=== PATIENT | male | born 1955 | race Native Hawaiian/Other Pacific Islander ===

== ENCOUNTER 2016-10-13 16:27 | Emergency (ER) | payer OTHER ==
[~2016-10-13] VITALS: Ht 167.6 cm; Wt 81.6 kg
[2016-10-13 17:13] LABS: PLATELET COUNT 172 K/uL (142-355)
[2016-10-13 17:22] LABS: POTASSIUM 4.6 mmol/L (3.6-5.2); SODIUM 136 mmol/L (136-145)
[2016-10-13 19:56] VITALS: BP 148/68; TEMP 97.9
== END 2016-10-13 20:01 | disposition home or self-care (01) ==
LOC: ED 16:27
DX: E11.9 Type 2 diabetes mellitus without complications (principal); R53.1 Weakness
CPT/HCPCS: 36415; 80053; 81000; 83036; 85027; 96365; 99284

== ENCOUNTER 2016-10-15 19:02 | Emergency (ER) | payer OTHER ==
[~2016-10-15] VITALS: Ht 167.6 cm; Wt 81.6 kg
[2016-10-15] MEDS ORDERED: CLOP75TA2 PO (19:15)
[2016-10-15] MEDS ORDERED: METFTAB PO (19:15)
[2016-10-15] MEDS ORDERED: ZESTRIL40 MG PO (19:16)
[2016-10-15] MEDS ORDERED: TRILEPTAL300 MG PO (19:16)
[2016-10-15] MEDS ORDERED: TIROSINT100 MCG PO (19:17)
[2016-10-15 19:35] VITALS: BP 154/88; TEMP 98.3
== END 2016-10-15 19:35 | disposition home or self-care (01) ==
LOC: ED 19:02
DX: J11.1 Influenza due to unidentified influenza virus with other respiratory manifestations (principal)
CPT/HCPCS: 99282

== ENCOUNTER 2017-01-09 20:03 | Emergency (ER) | payer OTHER ==
[~2017-01-09] VITALS: Ht 167.6 cm; Wt 81.6 kg
[~2017-01-09 20:03] MED LIST: CLOP75TA2 PO; METFTAB PO; TIROSINT100 MCG PO; TRILEPTAL300 MG PO; ZESTRIL40 MG PO
[2017-01-09 21:33] LABS: PLATELET COUNT 150 K/uL (142-355)
[2017-01-09 21:36] LABS: POTASSIUM 4.1 mmol/L (3.6-5.2); SODIUM 134 mmol/L (136-145)
[2017-01-09 22:18] VITALS: BP 137/79; TEMP 98
== END 2017-01-09 22:17 | disposition home or self-care (01) ==
LOC: ED 20:03
PROVIDERS: Emergency Medicine
DX: R53.1 Weakness (principal); E11.9 Type 2 diabetes mellitus without complications; E03.8 Other specified hypothyroidism
CPT/HCPCS: 36415; 80053; 81000; 82550; 84443; 84484; 85027; 93005; 96360; 99284

== ENCOUNTER 2017-09-08 01:41 | Outpatient (CLI) | payer OTHER | END 2017-09-08 01:44 | disposition short-term general hospital (02) | LOC: AMB 01:41 | DX: R68.89 Other general symptoms and signs (principal); R53.1 Weakness | CPT/HCPCS: A0425; A0427 ==

== ENCOUNTER 2017-09-08 01:48 | Emergency (ER) | payer OTHER ==
[~2017-09-08] VITALS: Ht 167.6 cm; Wt 90.7 kg
[2017-09-08 03:49] VITALS: BP 137/70; TEMP 98.3
== END 2017-09-08 03:51 | disposition home or self-care (01) ==
LOC: ED 01:48
DX: R42 Dizziness and giddiness (principal)
CPT/HCPCS: 99282

== ENCOUNTER 2020-11-09 10:45 | Inpatient (IN) | payer OTHER ==
[~2020-11-09] VITALS: Ht 167.6 cm; Wt 85.4 kg
[2020-11-09 12:46] VITALS: BP 91/49; TEMP 97.9; Ht 167.6 cm; Wt 85.4 kg
[2020-11-09 12:47] LABS: PLATELET COUNT 227 K/uL (142-355)
[2020-11-09 13:13] LABS: POTASSIUM 3.9 mmol/L (3.6-5.2)
[2020-11-09 16:00] VITALS: BP 111/72; TEMP 97.5
[2020-11-09] MEDS ORDERED: SANTYL250 UNIT/G TOP (16:40)
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
--- NOTE | 2020-11-09 16:58 | NUR ---
CIRCUMFRENCE OF LEFT FOOT MEASURED 4.5 INCHES FROM TIP OF GREAT TOE. LEFT FOOT CIRCUM IS 10.5INCHES AND RT FOOT CIRCUM IS 10 1/8TH INCH. TOP OF LEFT FOOT HAS SCABBED AREA MEASURES 1.0X1.1CM OUTER SIDE OF LEFT FOOT NEAR 5TH DIGIT OPEN AREA 1.4CMX2.0CMX0.3CM WOUND BED >90% SLOUGH. AREA TO LEFT THIGH BROWN IN COLOR 9.5 INCHES X 7.5 INCHES WITH 5 SMALL BLISTERS. AND SEVERAL SCABBED AREAS OBSERVED.
--- NOTE | 2020-11-09 17:27 | NUR ---
i spoke with pt in his room this afternoon about his possible discharge plans. I told him about Dr. Knapp's concern about his foot wounds and about the wound to his left knee. Pt stated he lived at home alone, when i asked if anyone helped prepare his meals, he stated he "walks to [employer] restaurant". I asked pt if he had ever considered alf placement to assist in his wound healing and strengthening and to assist with his ADL's, he stated he would talk to his niece, Shelly Leija [phone].
--- NOTE | 2020-11-09 17:35 | NUR ---
WOUND CARE COMPLETED ON PT FEET.OPEN AREA OBSERVED BETWEEN 4TH AND 5TH TOE. STERILE 4X4 PLACES BETWEEN TOES.
[2020-11-09 20:00] VITALS: BP 111/76; TEMP 97.5
--- NOTE | 2020-11-09 20:10 | NUR ---
AT PT'S BEDSIDE AT THIS TIME. PT IN A HIGH DE [place]'S POSITION AT THIS TIME AND DENIES ANY PAIN OR DISCOMFORT AT THIS TIME. PT. IS SALINE LOCKED AT THIS TIME AND RESPONDS APPROPRIATELY TO VERBAL STIMULI.
--- NOTE | 2020-11-09 21:18 | NUR ---
PM MED GIVEN AT THIS TIME. PT IS SITTING UPRIGHT ON THE SIDE OF THE BED. PT TOLERATED WELL.
[2020-11-10 00:26] VITALS: BP 124/53; TEMP 97.8
--- NOTE | 2020-11-10 00:47 | NUR ---
ZOCEYN ANTIBIOTIC GIVEN AT THIS TIME. PT'S IV SITE FLUSHED BEFORE INFUSION AND FLUSHED WELL.
--- NOTE | 2020-11-10 02:36 | NUR ---
VANCOMYCIN ANTIBIOTIC GIVEN AT THIS TIME. DRESSING TO THE LEFT FOOT DRY AND INTACT AT THIS TIME. PT DENIES ANY PAIN OR DISCOMFORT AT THIS TIME.
[2020-11-10 04:21] VITALS: BP 144/72; TEMP 97.6
[2020-11-10 06:23] LABS: PLATELET COUNT 194 K/uL (142-355)
[2020-11-10 06:35] LABS: POTASSIUM 4.2 mmol/L (3.6-5.2)
--- NOTE | 2020-11-10 07:45 | NUR ---
NOTIFIED PER PCT THAT PT HAD HIS HOME MEDS IN HIS ROOM AT . WENT IN AND EXPLAINED TO PT THAT I NEEDED TO GET WITH MD TO SEE WHAT MEDS HAD BEEN ORDERED AND TO CHECK IF THERE WAS AN ORDER FOR THEM. PT VERBALIZED UNDERSTANDING BUT TOLD ME HAD BEEN TAKING THIS MEDS FOR 10 YEARS. UNSURE IF PT HAD TAKEN HIS MEDS THIS AM PRIOR TO MY ARRIVAL. MEDS OBTAINED AND PLACED IN MEDROOM.
[2020-11-10 08:00] VITALS: BP 119/71; TEMP 97.9
--- NOTE | 2020-11-10 08:54 | NUR ---
SPOKE WITH MARCIO BABB LPN AT [facility] CONCERNING WOUND CARE CONSULT. SHE INFORMED ME THAT SHE WOULD ASK JUAN BABB IF THEY WERE ALLOWED TO COME OVER AND LET ME KNOW. GOMEZ IN INFORMED
--- NOTE | 2020-11-10 10:00 | NUR ---
PER MARCIO BABB CONCRETE STONE FINISHING SUPERVISOR WOUND TO LEFT MEDIAL 1ST DIGIT MEASURED 1CM X 0.4CM. HEALED AREA NOTED TO LEFT HEEL SCABBED NOTED TO 0.3CM X 0.2CM. SCAB NOTED TO LEFT MEDIAL 1ST DIGIT 1 X 0.4CM SCAB NOTED SCAB NOTED TO LEFT MEDIAL FOOT 0.5CM X 0.5CM. NO DRAINAGE NOTED TO ANY AREAS WILL CONT TO [facility] [place].
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
[2020-11-10 12:00] VITALS: BP 133/79; TEMP 97.9
[2020-11-10 16:00] VITALS: BP 119/53; TEMP 97.9
[2020-11-10 20:00] VITALS: BP 135/61; TEMP 97.6
--- NOTE | 2020-11-10 20:08 | NUR ---
PT AWAKE, ALERT, AND ORIENTED SITTING UP ON END OF BED WATCHING TV WITH NO S/S OF PAIN OR DISTRESS NOTED. DENIES ANY PAIN OR PROBLEMS AT THIS TIME. SKIN WARM AND DRY, RESP RATE NORMAL AND NONLABORED, 20G IV LOCK INTACT TO L FA WITH NO PROBLEMS NOTED TO SITE, RADIAL PULSES INTACT/EQUAL, SEE SHIFT ASSESSMENT FOR DETAILS. NOTE DRESSING DRY AND INTACT TO L FOOT WITH REDNESS NOTED TO TOES AND HEEL AREA(ONLY AREAS VISIBLE) ALSO SOME SWELLING NOTED. REDNESS AND SWELLING NOTED TO WHOLE R FOOT TOES AND ANKLE, SWELLING TO TOP OF R FOOT PITTING AND REDNESS ALSO UP PAST R ANKLE ON LEG. FLUSHED IV SITE EASILY WITH 10ML NS AND HUNG ZOSYN IV PER ORDER TO INFUSE(WILL FLUSH WITH 10ML NS WHEN ANTIBIOTIC IS FINISHED). WILL MONITOR CLOSELY, RAILS UP X3, CALL LIGHT IN REACH, BED IN LOW POSITION, ENCOURAGED TO CALL NEEDED.
--- NOTE | 2020-11-10 22:50 | NUR ---
PT RESTING QUIETLY IN BED IN POSITION OF COMFORT LAYING ON L SIDE WITH EYES CLOSED, NO S/S OF PAIN OR DISTRESS NOTED, IV LOCK INTACT, RESP RATE NONLABORED, WILL MONITOR CLOSELY, RAILS UP, BED IN LOW POSITION, CALL LIGHT IN REACH.
[2020-11-11] VITALS: BP 124/80; TEMP 97.5
--- NOTE | 2020-11-11 01:10 | NUR ---
PT RESTING IN BED WITH EYES CLOSED, NO S/S OF PAIN OR DISTRESS NOTED, AROUSES TO ALLIANCE MANAGER BEING IN ROOM AND DENIES ANY PROBLEMS OR NEEDS AT THIS TIME. 20G IV INTACT TO L FA WITH NO PROBLEMS NOTED TO SITE, RESP RATE NONLABORED ON ROOM AIR. PT ALERT AND ORIENTED. IV SITE FLUSHED EASILY WITH 10ML NS AND IV ZOSYN NOW INFUSING WITH NO PROBLEMS. BOTH OF PT'S LOWER LEGS AND FEET WRAPPED WITH MARYAN WRAP PER ORDER, INSTRUCTED PT TO CALL FOR ASSIST TO BATHROOM FOR SAFETY REASONS AND URINAL PLACED WITHIN PT'S REACH, PT ACKNOWLEDGES UNDERSTANDING. WILL MONITOR CLOSELY, RAILS UP X3, BED IN LOW POSITION, CALL LIGHT IN REACH. PT NOW SITTING UP WATCHING TV.
--- NOTE | 2020-11-11 03:24 | NUR ---
VANCOMYCIN TROUGH RESULTS ARE BACK, VANCO TROUGH IS 7.8. WILL GIVE 0300 DOSE.
[2020-11-11 04:00] VITALS: BP 138/84; TEMP 98.3
--- NOTE | 2020-11-11 05:29 | NUR ---
AWAKE SITTING UP ON SIDE OF BED WATCHING TV, DENIES ANY PAIN OR PROBLEMS, IV INTACT, DRESSING DRY AND INTACT TO WOUND ON L FOOT, MARYAN WRAP TO BILATERAL LOWER LEGS/FEET, NO S/S OF DISTRESS NOTED, PT TALKATIVE WITH STAFF, BROUGHT PT DIET SODA PER REQUEST. WILL MONITOR CLOSELY, RAILS UP X3, BED IN LOW POSITION, CALL LIGHT IN REACH, ENCOURAGED TO CALL NEEDED OR FOR ASSIST TO BATHROOM. PT ACKNOWLEDGES UNDERSTANDING.
[2020-11-11 05:35] LABS: PLATELET COUNT 194 K/uL (142-355)
[2020-11-11 06:08] LABS: POTASSIUM 4.4 mmol/L (3.6-5.2)
[2020-11-11 08:00] VITALS: BP 146/81; TEMP 97.6
--- NOTE | 2020-11-11 08:00 | NUR ---
JUAN FROM PHARMACY CALLED AND STATED THAT THE PT'S WOUND CULTURE CAME BACK WITH A GRAM NEGATIVE STRAIN THAT IS RESISTENT TO ZOSYN AND THE VANCOMYCIN WILL NOT KILL IT AT THE [facility] IT IS CURRENTLY BEING GIVEN AT. WE MUST CHANGE THE ANTIBIOTIC. DR. LINDSEY HAS BEEN NOTIFIED, WAITING FOR FURTHER INSTRUCTIONS.
--- NOTE | 2020-11-11 08:20 | NUR ---
JUAN FROM PHARMACY CALLED AND SPOKE TO JUMA BURGESS REGARDING PT WOUND CULTURE GROWING OUT GRAM NEG RODS AND STATES IT IS RESISTENT TO ZOSYN AND THE DOSE OF VANC WONT HELP SO SHE SUGGESTED TO UP VANC TO 1000MG Q12 AND/OR ADD CIRPO,LEVAQUIN, OR MERAPENAM
--- NOTE | 2020-11-11 08:30 | NUR ---
UPDATED DR. LINDSEY ON PT'S AM LABS AND INFORMED HER OF WHAT JUAN FROM PHARMACY SAID, DR. LINDSEY ORDERS TO UP VANC DOSE TO 1GM Q12H, D/C ZOSYN, AND ADD LEVAQUIN 750MG DAILY, NO FURTHER ORDERS AT THIS TIME
--- NOTE | 2020-11-11 10:29 | NUR ---
IN PT'S ROOM TO HANG NEW ANTIBIOTICS. EDUCATED PT ON WHY ANTIBIOTICS WERE CHANGED. EDUCATED PT TO PROP FEET TODAY TO AID IN SWELLING REDUCTION, PT VERBALIZED UNDERSTANDING. PT STATED THAT HIS NEICE SHOULD BE COMING TODAY TO TALK TO HIM ABOUT GOING INTO THE [facility] FOR 60 DAYS TO REHABILITATE HIS FOOT AND THEN HE WILL GO HOME. PT WAS ATTEMPTING TO MAKE A PHONECALL DIRECTOR RETAIL BRAND DEVELOPMENT WAS LEAVING THE ROOM.
[2020-11-11 12:00] VITALS: BP 135/80; TEMP 97.6
--- NOTE | 2020-11-11 12:42 | NUR ---
PT STATED THAT HIS LT FOOT WAS HURTING DESCRIBING IT A THROBBING PAIN AND POINTING TOWARDS THE SMALLEST TOE TO INDICATE LOCATION. DRESSING WAS REMOVED BY WIRE WEB WORKER. ULCER TO THE LEFT SIDE OF THE LEFT FOOT IS PRESENT MEASURING 1.5CM X 1.7CM WITH SLOUGH. ULCER WAS CLEANED WITH 4X4'S SOAKED IN NORMAL SALINE AND COVERED WITH ADAPTIC GAUZE THEN AQUACELL THEN NONSTICK TELFA THEN WRAPPED WITH TSERING. REWRAPPED MARAYN BANDAGE UP THE FOOT TO MID CALF. REMOVED MARYAN BANDAGE FROM RT LEG/FOOT TO OBSERVE, LOWER LEG WAS SWOLLEN, NO ULCERS PRESENT. MARYAN BANDAGE WAS REPLACED BACK ON THE RT LEG. PT STATED THAT IT FELT MUCH BETTER AND HE WAS VERY APPRECIATIVE. WHEN PT WENT TO MOVE TO THE RECLINER FROM THE CHAIR TO EAT LUNCH, PT HAD DIFFICULTY STANDING TO MOVE AND NEEDED ASSISTANCE. WHEN ASKED IF HE HAD DIFFICULTY MOVING DUE TO PAIN OR WEAKNESS, PT STATED HE WAS WEAK. PT STATED THAT WHILE AT HOME HE DOES NOT WALK AROUND HIS HOME FOR MULTIPLE HOURS OF THE DAY AND FEELS IF THAT HAS CAUSED MUCH OF HIS WEAKNESS. WILL CONTINUE TO MONITOR.
--- NOTE | 2020-11-11 13:00 | NUR ---
NIECE HAS ARRIVED TO THE HOSPITAL, CURRENTLY VISITING WITH PT. JOVON OZUNA LPN CM UR DP, MET WITH THE CLAUDIACORTEZ TO EDUCATE ON THE ADVANCE DIRECTIVE. COPY OF ADVANCE DIRECTIVE IS NOW IN THE CHART AND PT IS NOW A DNR. BILLIE WENT AND BOUGHT PT NEW CLOTHES, SHOES, AND SNACKS. PT IS NOW SITTING UP IN THE CHAIR, NAD IS NOTED AT THIS TIME.
--- NOTE | 2020-11-11 13:49 | NUR ---
SPOKE WITH EVIE WHO IS HERE FOR A VISIT AND TO DISCUSS WITH THE POA PAPERS. EVIE SAID IF FOR ANY REASON MR. ANGEL WAS NOT ABLE TO GO TO THE [facility] OR IF MR. ANGEL REFUSED THE [facility]AVILION HE HAS SHOWN INTEREST IN GOING TO [place]. EVIE WAS GOING TO BUY MR. ANGEL SOME CLOTHES AND SLIPPERS TO HAVE HERE WITH HIM.
[2020-11-11 16:00] VITALS: BP 135/79; TEMP 97.7
--- NOTE | 2020-11-11 16:51 | NUR ---
DR. LINDSEY JUST MET WITH PT AND INSTRUCTED THAT MEMBER SERVICES COORDINATOR PUT SANTYL ON THE WOUND TO AID WITH DEBRIDEMENT. WITH ASSISTANCE FROM MIGUEL ESPINOSA RN AND MICHAEL JANESN PCT BANDAGE WAS REMOVED FROM LEFT LOWER LEG/FOOT, SANTYL WAS APPLIED AND FRESH DRESSING WAS REPLACED. PT IS NOW SITTING UP IN THE CHAIR WITH FEET PROPPED ON A CHAIR, CALL LIGHT IS WITHIN REACH, AND NAD IS NOTED AT THIS TIME.
[2020-11-11 20:00] VITALS: BP 131/74; TEMP 98.1
[2020-11-12] VITALS: BP 118/73; TEMP 98.6
[2020-11-12 04:00] VITALS: BP 134/79; TEMP 97.7
--- NOTE | 2020-11-12 06:24 | NUR ---
11/12/20 AT 1920 PATIENT RESTING QUIETLY SITTING UP IN RECLINER AT BEDSIDE WITH FEET ELEVATED, DENIES ANY COMPLAINTS AT THIS TIME. PM SHIFT ASSESSMENT COMPLETED PATIENT TOLERATED WELL. PATIENT IS ALERT AND ORIENTED X 4, SKIN WARM AND DRY. DRESSING DRY AND INTACT TO LEFT FOOT AND MARYAN WRAPS DRY AND INTACT TO BILATERAL LOWER EXTREMITIES. PATIENT HAS GOOD BILATERAL PEDAL PULSES AND NO DISTRESS NOTED AT THIS TIME. 22G IV SALINE LOCKED TO RIGHT HAND. CALL LIGHT WITHIN REACH AND WILL CONTINUE TO MONITOR.
--- NOTE | 2020-11-12 06:28 | NUR ---
11/11/20 AT 2039 IN TO ADMINISTER PATIENTS SCHEDULED NIGHT TIME MEDS. PATIENT TOLERATED WELL. NO C/O OR REQUESTS AT THIS TIME. CALL LIGHT WITHIN REACH. WILL CONTINUE TO MONITOR.
--- NOTE | 2020-11-12 06:29 | NUR ---
11/11/20 AT 2330 PATIENT RESTING QUIETLY IN BED WITH EYES CLOSED. NO ACUTE DISTRESS NOTED. CALL LIGHT WITHIN REACH AND WILL CONTINUE TO MONITOR.
--- NOTE | 2020-11-12 06:31 | NUR ---
11/12/20 AT 0245 PATIENT RESTING QUIETLY WITH EYES CLOSED. NO ACUTE DISTRESS NOTED. CALL LIGHT WITHIN REACH WILL CONTINUE TO MONITOR.
--- NOTE | 2020-11-12 06:32 | NUR ---
11/12/20 AT 0415 IN TO HANG PATIENTS VANCOMYCIN. SALINE LOCK FLUSHED WITH NS WITHOUT DIFFICULTY AND VANCOMYCIN STARTED. NO C/O AT THIS TIME. CALL LIGHT WITHIN REACH. WILL CONTINUE TO MONITOR.
--- NOTE | 2020-11-12 06:33 | NUR ---
11/12/20 AT 0515 VANCOMYCIN INFUSED, IV FLUSHED WITH NS WITHOUT DIFFICULTY. PATIENT DENIES ANY COMPLAINTS AT THIS TIME AND DENIES ANY REQUESTS. PT. STATES "IM FEELING BETTER." PATIENT ADVISED TO KEEP HIS LEGS ELEVATED MUCH POSSIBLE AND PATIENT STATES HE WILL. CALL LIGHT WITHIN REACH. WILL CONTINUE TO MONITOR.
--- NOTE | 2020-11-12 07:50 | NUR ---
ENTERED PT'S ROOM FOR MORNING VITALS. PT IS SITTING UP IN THE CHAIR, BREATHING IS EVEN AND NONLABORED. IV IS STILL INTACT. PT DENIES ANY PAIN AT THIS TIME. WILL CONTINUE TO MONITOR.
[2020-11-12 08:00] VITALS: BP 140/77; TEMP 98.2
--- NOTE | 2020-11-12 10:10 | NUR ---
LEVOFLOXACIN HAS BEEN HUNG. PT IS SITTING UP IN THE CHAIR COVERED WITH A BLANKET RESTING WITH HIS EYES CLOSED, PT STATED HE WAS COLD WIRING TECHNICIAN TURNED ON THE HEAT. LIGHTS ARE OUT AND ROOM IS QUIET. PT IS SHOWING NAD AT THIS TIME. LEFT PT IN THE CHAIR WITH CALL LIGHT WITHIN REACH.
--- NOTE | 2020-11-12 11:20 | NUR ---
ENTERED PT'S ROOM UPON REQUEST, PT NEEDED IV TO BE UNHOOKED TO GO TO THE BATHROOM. PT GOT OUT OF CHAIR WITHOUT ASSISTANCE AND USED WALKER TO WALK TO THE BATHROOM. PT BECAME SLIGHTLY UNSTEADY BUT THEN READJUSTED HIMSELF AND MADE IT SAFELY INTO THE BATHROOM. PT STATED HE WOULD CALL HIDE WORKER WHEN HE WAS FINISHED AND BACK IN THE CHAIR TO BE HOOKED BACK TO THE IV.
[2020-11-12 12:00] VITALS: BP 120/75; TEMP 97.5
--- NOTE | 2020-11-12 13:30 | NUR ---
ASKED PT IF HE WOULD LIKE A SHOWER, PT STATED THAT HE WOULD LIKE A SHOWER. PT WAS PROVIDED WITH SHAMPOO/BODY WASH, TOWELS, AND WASHCLOTHS. IV WAS WRAPPED AND FEET WERE UPWRAPPED LEFT OPEN TO AIR. PT WALKED TO THE SHOWER WITH THE USE OF A WALKER, GAIT WAS STEADY. PT UNDRESSED AND GOT INTO THE SHOWER WITH THE ASSISTANCE OF HIGH SCHOOL AGRICULTURE TEACHER. PT EDUCATED ON HOW TO ADJUST WATER TEMPERATURE AND TO NOT GET OUT OF THE SHOWER WITHOUT ASSISTANCE.
[2020-11-12 16:00] VITALS: BP 107/81; TEMP 97.5
--- NOTE | 2020-11-12 16:56 | NUR ---
DRESSING CHANGE WAS PERFORMED BY WRITER AND MEGAN FRANCISCA HICKS. WOUND WAS 100% SLOUGH, RED AND SWOLLEN. SANTYL WAS PLACED ON THE WOUND AND COVERED WITH ADAPTIC GAUZE, AQUACEL, AND NON-STICK TELFA. LEFT FOOT WAS REWRAPPED WITH TSERING AND MARYAN BANDAGE. RIGHT FOOT WAS REWRAPPED WITH MARYAN BANDAGE. BLE ARE SWOLLEN AND RED, PT DENIES PAIN AT THIS TIME. WILL CONTINUE TO MONITOR.
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
[2020-11-12 20:00] VITALS: BP 96/56; TEMP 98.4
--- NOTE | 2020-11-12 21:41 | NUR ---
11/12/20 AT 1950 PATIENT RESTING QUIETLY IN RECLINER AT BEDSIDE. PT. IS ALERT AND ORIENTED X4, SKIN WARM AND DRY AND HAS HIS LEGS ELEVATED. PATIENT DENIES ANY COMPLAINTS AND STATES "FEELING BETTER AND BETTER EVERYDAY". P TO A SHIFT ASSESSMENT COMPLETED AT THIS TIME AND PATIENT TOLERATED WELL. IV SITE IS A 22G CATHETER PATENT AND DRESSING DRY AND INTACT TO RIGHT HAND, NO SWELLING, REDNESS OR DISCOMFORT NOTED AT THIS TIME. PATIENTS LEGS REMAIN WRAPPED IN MARYAN WRAPS AND PATIENT HAS GOOD PEDAL PULSES FELT BILATERALLY. DRESSING TO LEFT FOOT ULCER ALSO DRY AND INTACT AND PATIENT DENIES ANY PAIN AT THIS TIME. CALL LIGHT WITHIN REACH AND WILL CONTINUE TO MONITOR.
[2020-11-13] VITALS: BP 114/61; TEMP 98
[2020-11-13 04:00] VITALS: BP 124/69; TEMP 97.6
[2020-11-13 05:03] LABS: PLATELET COUNT 193 K/uL (142-355)
[2020-11-13 05:17] LABS: POTASSIUM 4.2 mmol/L (3.6-5.2)
[2020-11-13 08:00] VITALS: BP 110/68; TEMP 97.9
[2020-11-13] MEDS ORDERED: CLOP75TA2 PO (10:52)
[2020-11-13] MEDS ORDERED: LISI20TA11 PO (10:52)
[2020-11-13] MEDS ORDERED: OXCARBAZEPIN300 MG PO (10:53)
[2020-11-13] MEDS ORDERED: INSUINJ20 SC (10:53)
[2020-11-13] MEDS ORDERED: ACET-206 PO (10:53)
[2020-11-13] MEDS ORDERED: COLL250O TOP (10:54)
[2020-11-13] MEDS ORDERED: LEVO0.0723 PO (10:54)
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
--- NOTE | 2020-11-13 11:06 | NUR ---
PER DR. LINDSEY- SHE IS NOT SENDING PT TO SNF ON [facility], [place] TO CONTINUE HOME MEDS.
--- NOTE | 2020-11-13 11:08 | NUR ---
PATIENT REPORT [facility].
--- NOTE | 2020-11-13 11:50 | NUR ---
PT ORDERS AND RECORDS [facility]ED TO [facility].
--- NOTE | 2020-11-13 12:05 | NUR ---
EMS HERE TO PICK PT UP.
--- NOTE | 2020-11-13 12:10 | NUR ---
FEET WASHED AND DRIED. WOUND CARE PROVIDED PER WOUND CARE ORDERS. PT HEATHER FAIR.
--- NOTE | 2020-11-13 12:14 | NUR ---
PT LEFT FLOOR WITH EMS IN [facility] RO[facility]. BELONGINGS SENT WITH PT.
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
== END 2020-11-13 12:14 | DRG 603 ==
LOC: MED/SURG 10:45
PROVIDERS: ADMIT Family Medicine; ATTEND Family Medicine
DX: L03.116 Cellulitis of left lower limb (principal); L03.115 Cellulitis of right lower limb; E11.42 Type 2 diabetes mellitus with diabetic polyneuropathy; I10 Essential (primary) hypertension; E11.621 Type 2 diabetes mellitus with foot ulcer; B96.89 Other specified bacterial agents as the cause of diseases classified elsewhere; E66.8 Other obesity; Z68.29 Body mass index [BMI] 29.0-29.9, adult; Z59.1 Inadequate housing
CPT/HCPCS: 36415; 80053; 80202; 81000; 82948; 83605; 83735; 84100; 85027; 86140; 87040; 87070; 87077; 87185; 87186; 87205; 87635; 93005; 96365; 96367; 96372; J1650; J1815; J1956; J2543; J3370; U0003

== ENCOUNTER 2020-11-13 12:51 | Inpatient (IN) | payer OTHER ==
[~2020-11-13 12:51] MED LIST changes: +ACET-206 PO; +COLL250O TOP; +INSUINJ20 SC; +LEVO0.0723 PO; +LISI20TA11 PO; +OXCARBAZEPIN300 MG PO; +SANTYL250 UNIT/G TOP
[2020-11-14 08:14] LABS: PLATELET COUNT 174 K/uL (142-355)
== END 2020-11-23 11:41 | disposition still patient (30) ==
LOC: PAVC 12:51
PROVIDERS: ADMIT Family Medicine; ATTEND Family Medicine
CPT/HCPCS: 80053; 80061; 82306; 82607; 82728; 83036; 83540; 84153; 84443; 85027; 87081

== ENCOUNTER 2020-11-23 11:51 | Inpatient (IN) | payer OTHER | END 2020-12-23 11:24 | disposition still patient (30) | LOC: PAVC 11:51 | PROVIDERS: ADMIT Family Medicine; ATTEND Family Medicine | DX: E11.621 Type 2 diabetes mellitus with foot ulcer (principal); L03.116 Cellulitis of left lower limb; L03.115 Cellulitis of right lower limb; E55.9 Vitamin D deficiency, unspecified; M62.81 Muscle weakness (generalized); R26.2 Difficulty in walking, not elsewhere classified ==

== ENCOUNTER 2020-12-23 11:30 | Inpatient (IN) | payer OTHER | END 2021-01-23 15:43 | disposition still patient (30) | LOC: PAVC 11:30 | PROVIDERS: ADMIT Family Medicine; ATTEND Family Medicine ==

== ENCOUNTER 2021-01-23 08:11 | Outpatient (CLI) | payer OTHER | END 2021-01-23 22:05 | disposition home or self-care (01) | LOC: LAB 08:11 | PROVIDERS: ATTEND Family Medicine | DX: E11.40 Type 2 diabetes mellitus with diabetic neuropathy, unspecified (principal) | CPT/HCPCS: 83036 ==

== ENCOUNTER 2021-01-23 16:56 | Inpatient (IN) | payer OTHER | END 2021-02-22 08:00 | disposition still patient (30) | LOC: PAVC 16:56 | PROVIDERS: ADMIT Family Medicine; ATTEND Family Medicine ==

== ENCOUNTER 2021-02-22 09:00 | Inpatient (IN) | payer OTHER | END 2021-03-25 08:00 | disposition still patient (30) | LOC: PAVC 09:00 | PROVIDERS: ADMIT Family Medicine; ATTEND Family Medicine ==

== ENCOUNTER 2021-03-25 09:00 | Inpatient (IN) | payer OTHER | END 2021-04-25 13:48 | disposition still patient (30) | LOC: PAVC 09:00 | PROVIDERS: ADMIT Family Medicine; ATTEND Family Medicine ==

== ENCOUNTER 2021-04-25 04:15 | Outpatient (CLI) | payer OTHER ==
[2021-04-25 05:32] LABS: PLATELET COUNT 140 K/uL (142-355)
[2021-04-25 06:03] LABS: POTASSIUM 4.4 mmol/L (3.6-5.2)
== END 2021-04-25 23:00 | disposition home or self-care (01) ==
LOC: LAB 04:15
PROVIDERS: ATTEND Family Medicine
DX: E11.40 Type 2 diabetes mellitus with diabetic neuropathy, unspecified (principal)
CPT/HCPCS: 80053; 80061; 82306; 83036; 84443; 85027

== ENCOUNTER 2021-04-25 13:55 | Inpatient (IN) | payer OTHER | END 2021-05-25 09:37 | disposition still patient (30) | LOC: PAVC 13:55 | PROVIDERS: ADMIT Family Medicine; ATTEND Family Medicine ==

== ENCOUNTER 2021-07-25 09:51 | Outpatient (CLI) | payer OTHER | END 2021-07-25 20:19 | disposition home or self-care (01) | LOC: LAB 09:51 | PROVIDERS: ATTEND Family Medicine | DX: E11.40 Type 2 diabetes mellitus with diabetic neuropathy, unspecified (principal) | CPT/HCPCS: 36415; 83036 ==

== ENCOUNTER 2021-07-25 11:27 | Inpatient (IN) | payer OTHER | END 2021-08-25 09:07 | disposition still patient (30) | LOC: PAVC 11:27 | PROVIDERS: ADMIT Family Medicine; ATTEND Family Medicine ==

== ENCOUNTER 2021-08-25 09:18 | Inpatient (IN) | payer OTHER | END 2021-09-25 08:55 | disposition still patient (30) | LOC: PAVC 09:18 | PROVIDERS: ADMIT Family Medicine; ATTEND Family Medicine ==

== ENCOUNTER 2021-09-25 11:39 | Inpatient (IN) | payer OTHER | END 2021-10-23 09:06 | disposition still patient (30) | LOC: PAVC 11:39 | PROVIDERS: ADMIT Family Medicine; ATTEND Family Medicine ==

== ENCOUNTER 2021-10-23 08:21 | Outpatient (CLI) | payer OTHER ==
[2021-10-23 08:43] LABS: PLATELET COUNT 159 K/uL (142-355)
[2021-10-23 09:07] LABS: POTASSIUM 4.7 mmol/L (3.6-5.2)
== END 2021-10-23 19:02 | disposition home or self-care (01) ==
LOC: LAB 08:21
PROVIDERS: ATTEND Family Medicine
DX: E11.40 Type 2 diabetes mellitus with diabetic neuropathy, unspecified (principal); I10 Essential (primary) hypertension; E55.9 Vitamin D deficiency, unspecified
CPT/HCPCS: 80053; 80061; 82306; 83036; 84443; 85027

== ENCOUNTER 2021-10-23 13:31 | Inpatient (IN) | payer OTHER | END 2021-11-23 14:10 | disposition still patient (30) | LOC: PAVC 13:31 | PROVIDERS: ADMIT Family Medicine; ATTEND Family Medicine ==

== ENCOUNTER 2021-10-25 01:14 | Outpatient (CLI) | payer OTHER | END 2021-10-25 19:05 | disposition home or self-care (01) | LOC: LAB 01:14 | PROVIDERS: ATTEND Family Medicine | DX: Z12.5 Encounter for screening for malignant neoplasm of prostate (principal) | CPT/HCPCS: 84153 ==

== ENCOUNTER 2021-11-23 14:54 | Inpatient (IN) | payer OTHER | END 2021-12-23 10:33 | disposition still patient (30) | LOC: PAVC 14:54 | PROVIDERS: ADMIT Family Medicine; ATTEND Family Medicine ==

== ENCOUNTER 2021-12-23 01:59 | Inpatient (IN) | payer OTHER | END 2022-01-23 09:55 | disposition still patient (30) | LOC: PAVC 01:59 | PROVIDERS: ADMIT Family Medicine; ATTEND Family Medicine ==

== ENCOUNTER 2022-01-23 08:38 | Outpatient (CLI) | payer OTHER | END 2022-01-23 19:08 | disposition home or self-care (01) | LOC: LAB 08:38 | PROVIDERS: ATTEND Family Medicine | DX: E11.40 Type 2 diabetes mellitus with diabetic neuropathy, unspecified (principal) | CPT/HCPCS: 83036 ==

== ENCOUNTER 2022-01-23 15:34 | Inpatient (IN) | payer OTHER | END 2022-02-22 09:13 | disposition still patient (30) | LOC: PAVC 15:34 | PROVIDERS: ADMIT Family Medicine; ATTEND Family Medicine ==

== ENCOUNTER 2022-02-22 12:36 | Inpatient (IN) | payer OTHER | END 2022-03-25 09:07 | disposition still patient (30) | LOC: PAVC 12:36 | PROVIDERS: ADMIT Family Medicine; ATTEND Family Medicine ==

== ENCOUNTER 2022-03-25 09:44 | Inpatient (IN) | payer OTHER | END 2022-04-25 09:10 | disposition still patient (30) | LOC: PAVC 09:44 | PROVIDERS: ADMIT Family Medicine; ATTEND Family Medicine ==

== ENCOUNTER 2022-04-25 07:48 | Outpatient (CLI) | payer OTHER ==
[2022-04-25 08:44] LABS: PLATELET COUNT 231 K/uL (142-355)
[2022-04-25 09:03] LABS: POTASSIUM 4.5 mmol/L (3.6-5.2)
== END 2022-04-25 19:19 | disposition home or self-care (01) ==
LOC: LAB 07:48
PROVIDERS: ATTEND Family Medicine
DX: E11.40 Type 2 diabetes mellitus with diabetic neuropathy, unspecified (principal); I10 Essential (primary) hypertension; E03.8 Other specified hypothyroidism; E55.9 Vitamin D deficiency, unspecified
CPT/HCPCS: 80053; 80061; 82306; 83036; 84443; 85027

== ENCOUNTER 2022-04-25 14:27 | Inpatient (IN) | payer OTHER | END 2022-05-25 10:35 | disposition still patient (30) | LOC: PAVC 14:27 | PROVIDERS: ADMIT Family Medicine; ATTEND Family Medicine ==

== ENCOUNTER 2022-05-25 13:45 | Inpatient (IN) | payer OTHER | END 2022-06-25 12:10 | disposition still patient (30) | LOC: PAVC 13:45 | PROVIDERS: ADMIT Family Medicine; ATTEND Family Medicine ==

== ENCOUNTER 2022-06-25 12:29 | Inpatient (IN) | payer OTHER | END 2022-07-25 15:15 | disposition still patient (30) | LOC: PAVC 12:29 | PROVIDERS: ADMIT Family Medicine; ATTEND Family Medicine ==

== ENCOUNTER 2022-07-25 08:32 | Outpatient (CLI) | payer OTHER | END 2022-07-25 19:00 | disposition home or self-care (01) | LOC: LAB 08:32 | PROVIDERS: ATTEND Family Medicine | DX: E11.40 Type 2 diabetes mellitus with diabetic neuropathy, unspecified (principal) | CPT/HCPCS: 83036 ==

== ENCOUNTER 2022-07-25 15:42 | Inpatient (IN) | payer OTHER | END 2022-08-25 10:48 | disposition still patient (30) | LOC: PAVC 15:42 | PROVIDERS: ADMIT Family Medicine; ATTEND Family Medicine ==

== ENCOUNTER 2022-08-25 13:51 | Inpatient (IN) | payer OTHER | END 2022-09-25 09:24 | disposition still patient (30) | LOC: PAVC 13:51 | PROVIDERS: ADMIT Family Medicine; ATTEND Family Medicine ==

== ENCOUNTER 2022-09-25 11:58 | Inpatient (IN) | payer OTHER | END 2022-10-23 15:10 | disposition still patient (30) | LOC: PAVC 11:58 | PROVIDERS: ADMIT Family Medicine; ATTEND Family Medicine ==

== ENCOUNTER 2022-10-23 07:24 | Outpatient (CLI) | payer OTHER ==
[2022-10-23 07:39] LABS: PLATELET COUNT 173 K/uL (142-355)
[2022-10-23 08:04] LABS: POTASSIUM 4.5 mmol/L (3.6-5.2)
== END 2022-10-23 19:10 | disposition home or self-care (01) ==
LOC: LAB 07:24
PROVIDERS: ATTEND Family Medicine
DX: I10 Essential (primary) hypertension (principal); E03.8 Other specified hypothyroidism; E11.40 Type 2 diabetes mellitus with diabetic neuropathy, unspecified; I73.9 Peripheral vascular disease, unspecified; N40.0 Benign prostatic hyperplasia without lower urinary tract symptoms; E55.9 Vitamin D deficiency, unspecified
CPT/HCPCS: 80053; 80061; 82306; 83036; 84153; 84443; 85027

== ENCOUNTER 2022-10-23 15:48 | Inpatient (IN) | payer OTHER | END 2022-11-23 12:49 | disposition still patient (30) | LOC: PAVC 15:48 | PROVIDERS: ADMIT Family Medicine; ATTEND Family Medicine ==

== ENCOUNTER 2022-11-23 13:02 | Inpatient (IN) | payer OTHER | END 2022-12-23 16:40 | disposition still patient (30) | LOC: PAVC 13:02 | PROVIDERS: ADMIT Family Medicine; ATTEND Family Medicine ==

== ENCOUNTER 2022-11-25 10:16 | Outpatient (CLI) | payer OTHER | END 2022-11-25 20:14 | disposition home or self-care (01) | LOC: LAB 10:16 | PROVIDERS: ATTEND Family Medicine | DX: E03.8 Other specified hypothyroidism (principal) | CPT/HCPCS: 84443; 84479; 84480 ==

== ENCOUNTER 2022-12-23 17:14 | Inpatient (IN) | payer OTHER | END 2023-01-23 11:56 | disposition still patient (30) | LOC: PAVC 17:14 | PROVIDERS: ADMIT Family Medicine; ATTEND Family Medicine ==

== ENCOUNTER 2023-01-23 12:06 | Inpatient (IN) | payer OTHER | END 2023-02-22 17:40 | disposition still patient (30) | LOC: PAVC 12:06 | PROVIDERS: ADMIT Family Medicine; ATTEND Family Medicine ==

== ENCOUNTER 2023-01-27 11:02 | Outpatient (CLI) | payer OTHER | END 2023-01-27 19:23 | disposition home or self-care (01) | LOC: LAB 11:02 | PROVIDERS: ATTEND Family Medicine | DX: E11.40 Type 2 diabetes mellitus with diabetic neuropathy, unspecified (principal) | CPT/HCPCS: 83036 ==

== ENCOUNTER 2023-04-29 07:40 | Outpatient (CLI) | payer OTHER ==
[2023-04-29 08:15] LABS: PLATELET COUNT 207 K/uL (142-355)
[2023-04-29 08:52] LABS: POTASSIUM 4.9 mmol/L (3.6-5.2)
== END 2023-04-29 22:00 | disposition home or self-care (01) ==
LOC: LAB 07:40
PROVIDERS: ATTEND Family Medicine
DX: I10 Essential (primary) hypertension (principal); E03.8 Other specified hypothyroidism; E11.40 Type 2 diabetes mellitus with diabetic neuropathy, unspecified; E55.9 Vitamin D deficiency, unspecified
CPT/HCPCS: 36415; 80053; 80061; 82306; 83036; 84443; 85027